=== PATIENT | female | born 1950 | race Two or more races ===

== ENCOUNTER 2021-10-09 12:02 | Inpatient (IN) | payer OTHER, MEDICAID ==
[~2021-10-09] VITALS: Ht 160 cm; Wt 140.6 kg
[2021-10-09] MEDS ORDERED: ACETAMINOPHEN 500 MG TAB PO ONE (12:30)
[2021-10-09] MEDS ORDERED: CLINDAMYCIN 600MG IV 50 ML IV ONE (12:30)
[2021-10-09 13:45] LABS: Basophils # (auto) 0 10 ^3/uL (0-0.2); Basophils % (auto) 0.2 % (0.0-2.0); Eosinophils # (auto) 0 10 ^3/uL (0-0.8); Hemoglobin 12.1 g/dL (12.2-16.2); Lymphocytes # (auto) 1.6 10 ^3/uL (0.4-5.4); Lymphocytes % (auto) 16.7 % (10.0-50.0); Mean Corpuscular Hemoglobin 25.7 pg (28.0-32.0); Mean Corpuscular Hgb Conc. 31.8 g/dL (32.0-36.0); Mean Corpuscular Volume 81.1 fL (80.0-100.0); Monocytes # (auto) 0.6 10 ^3/uL (0-1.3); Monocytes % (auto) 6.1 % (0.0-12.0); Neutrophils # (auto) 7.4 10 ^3/uL (1.6-8.6); Red Blood Cells 4.69 10^6/uL (4.0-5.20); Red Cell Distribution Width 15.4 % (11.8-14.3); White Blood Cell 9.6 10^3/uL (4.4-10.8)
[2021-10-09 13:52] LABS: Albumin 3.3 g/dL (3.4-5.0); Calcium 8.5 mg/dL (8.5-10.1); Potassium 3.1 mmol/L (3.5-5.1)
[2021-10-09 13:59] LABS: BUN/Creatinine Ratio 14.5; Bilirubin, Total 0.5 mg/dL (0.2-1.0); Total Protein 7.6 g/dL (6.4-8.2)
[2021-10-09] MEDS ORDERED: POTASSIUM CHL 20 Meq TABLET PO ONE (15:30)
[2021-10-09] MEDS ORDERED: NITROGLYCERIN 0.4 MG SL TAB SL PRN (16:00)
[2021-10-09] MEDS ORDERED: LORazepam 0.5 MG TAB PO PRN (16:00)
[2021-10-09] MEDS ORDERED: ALUM & MAG HYDROX-SIMETH LIQ(MAALOX) 30 ML PO PRN (16:00)
[2021-10-09] MEDS ORDERED: METOCLOPRAMIDE HCL 5MG/ml INJ 2ml VIAL IV PRN (16:00)
[2021-10-09] MEDS ORDERED: DOCUSATE SOD 100 MG CAP PO PRN (16:00)
[2021-10-09] MEDS ORDERED: MORPHINE SULFATE INJ 2 MG/ml SYRG IV PRN ×2 (16:00)
[2021-10-09] MEDS: SODIUM CHLORIDE 0.9% 1,000 ML IV SCH (16:00)
[2021-10-09] MEDS ORDERED: HYDROcodone-ACET 5/325MG TAB PO PRN (16:00)
[2021-10-09] MEDS: CLINDAMYCIN 300MG IV 50 ML IV SCH ×2 (16:00→22:17)
[2021-10-09] MEDS: ACETAMINOPHEN 325 MG TAB PO PRN (21:22)
[2021-10-09 23:19] VITALS: BP 102/50
[2021-10-10] MEDS: CLINDAMYCIN 300MG IV 50 ML IV SCH ×2 (04:59→09:42)
[2021-10-10] MEDS: ACETAMINOPHEN 325 MG TAB PO PRN ×2 (05:00→23:02)
[2021-10-10 05:12] VITALS: BP 132/74
[2021-10-10 06:48] LABS: Basophils # (auto) 0 10 ^3/uL (0-0.2); Basophils % (auto) 0.2 % (0.0-2.0); Eosinophils # (auto) 0 10 ^3/uL (0-0.8); Eosinophils % (auto) 0.1 % (0.0-7.0); Hematocrit 32.1 % (36.0-46.0); Hemoglobin 10.6 g/dL (12.2-16.2); Lymphocytes # (auto) 1.2 10 ^3/uL (0.4-5.4); Lymphocytes % (auto) 14.9 % (10.0-50.0); Mean Corpuscular Hemoglobin 26.5 pg (28.0-32.0); Mean Corpuscular Hgb Conc. 33.1 g/dL (32.0-36.0); Mean Corpuscular Volume 80.1 fL (80.0-100.0); Monocytes # (auto) 0.7 10 ^3/uL (0-1.3); Monocytes % (auto) 8.9 % (0.0-12.0); Neutrophils # (auto) 5.9 10 ^3/uL (1.6-8.6); Neutrophils % (auto) 75.9 % (37.0-80.0); Nucleated Red Blood Cells % 0.1 %; Potassium 3.6 mmol/L (3.5-5.1); Red Blood Cells 4.01 10^6/uL (4.0-5.20); White Blood Cell 7.8 10^3/uL (4.4-10.8)
[2021-10-10 06:56] LABS: Albumin 2.6 g/dL (3.4-5.0); BUN/Creatinine Ratio 16.3; Bilirubin, Total 0.4 mg/dL (0.2-1.0); Calcium 7.9 mg/dL (8.5-10.1); Total Protein 6.5 g/dL (6.4-8.2)
[2021-10-10] MEDS: SODIUM CHLORIDE 0.9% 1,000 ML IV SCH (08:40)
[2021-10-10] MEDS: AMPICILLIN & SULBACTAM SODIUM 3 GM in SODIUM CHL 0.9% 100 ML IV SCH ×2 (12:05→18:23)
[2021-10-10 13:00] VITALS: BP 111/53
[2021-10-10 14:47] LABS: Urine Bacteria NONE SEEN /hpf (None Seen); Urine Blood 1+ /uL (Negative); Urine Specific Gravity 1.009 (1.001-1.035); Urine WBC 2 /hpf (0 - 5)
[2021-10-10] MEDS: CLINDAMYCIN 600MG IV 50 ML IV SCH ×2 (15:04→23:03)
[2021-10-10 17:00] VITALS: BP 107/52
[2021-10-10 22:00] VITALS: BP 119/64
[2021-10-11] MEDS: SODIUM CHLORIDE 0.9% 1,000 ML IV SCH (01:41)
[2021-10-11] MEDS: AMPICILLIN & SULBACTAM SODIUM 3 GM in SODIUM CHL 0.9% 100 ML IV SCH ×3 (03:00→19:36)
[2021-10-11 05:35] VITALS: BP 128/75
[2021-10-11 06:31] LABS: Basophils # (auto) 0 10 ^3/uL (0-0.2); Eosinophils # (auto) 0 10 ^3/uL (0-0.8); Monocytes # (auto) 0.8 10 ^3/uL (0-1.3)
[2021-10-11 06:33] LABS: Basophils % (auto) 0.4 % (0.0-2.0); Eosinophils % (auto) 0.7 % (0.0-7.0); Hematocrit 32.8 % (36.0-46.0); Hemoglobin 10.7 g/dL (12.2-16.2); Lymphocytes # (auto) 1.4 10 ^3/uL (0.4-5.4); Lymphocytes % (auto) 22.7 % (10.0-50.0); Mean Corpuscular Hemoglobin 26.5 pg (28.0-32.0); Mean Corpuscular Hgb Conc. 32.5 g/dL (32.0-36.0); Mean Corpuscular Volume 81.5 fL (80.0-100.0); Neutrophils % (auto) 63.2 % (37.0-80.0); Nucleated Red Blood Cells % 0.1 %; Red Blood Cells 4.02 10^6/uL (4.0-5.20); Red Cell Distribution Width 15.1 % (11.8-14.3); White Blood Cell 6.3 10^3/uL (4.4-10.8)
[2021-10-11 06:52] LABS: Potassium 3.5 mmol/L (3.5-5.1)
[2021-10-11 06:58] LABS: Albumin 2.4 g/dL (3.4-5.0); BUN/Creatinine Ratio 10.8; Bilirubin, Total 0.4 mg/dL (0.2-1.0); Calcium 7.9 mg/dL (8.5-10.1); Total Protein 6.6 g/dL (6.4-8.2)
[2021-10-11] MEDS: CLINDAMYCIN 600MG IV 50 ML IV SCH ×2 (07:00→15:00)
[2021-10-11 09:23] VITALS: BP 108/57
[2021-10-11 12:38] VITALS: BP 120/70
[2021-10-11 16:40] VITALS: BP 124/68
[2021-10-11 23:39] VITALS: BP 135/79
[2021-10-12] MEDS: CLINDAMYCIN 600MG IV 50 ML IV SCH ×4 (00:26→22:44)
[2021-10-12] MEDS: AMPICILLIN & SULBACTAM SODIUM 3 GM in SODIUM CHL 0.9% 100 ML IV SCH ×4 (03:13→20:57)
[2021-10-12 05:18] VITALS: BP 132/72
[2021-10-12 09:00] VITALS: BP 146/83
[2021-10-12] MEDS: ACETAMINOPHEN 325 MG TAB PO PRN (11:58)
[2021-10-12 13:00] VITALS: BP 123/73
[2021-10-12] MEDS ORDERED: DEXTROSE (50%) 50ML SYRG IV PRN (13:00)
[2021-10-12 17:00] VITALS: BP 139/72
[2021-10-12] MEDS: ACCU-CHEK COMFORT CURVE STRIP VI SCH ×2 (17:00→22:40)
[2021-10-12] MEDS: InsuLIN REG 1unit/0.01ml Soln (100units/ml) SC SCH ×2 (17:00→22:00)
[2021-10-13] MEDS: AMPICILLIN & SULBACTAM SODIUM 3 GM in SODIUM CHL 0.9% 100 ML IV SCH ×4 (02:01→20:21)
[2021-10-13 05:22] VITALS: BP 126/73
[2021-10-13] MEDS: InsuLIN REG 1unit/0.01ml Soln (100units/ml) SC SCH ×4 (06:02→22:00)
[2021-10-13] MEDS: ACCU-CHEK COMFORT CURVE STRIP VI SCH ×4 (06:02→23:17)
[2021-10-13] MEDS: CLINDAMYCIN 600MG IV 50 ML IV SCH ×3 (06:10→23:17)
[2021-10-13 06:14] LABS: Hemoglobin 10.8 g/dL (12.2-16.2)
[2021-10-13 06:17] LABS: Hematocrit 32.7 % (36.0-46.0)
[2021-10-13 06:25] LABS: Magnesium 2.3 mg/dL (1.6-2.6)
[2021-10-13] MEDS: ACETAMINOPHEN 325 MG TAB PO PRN (08:39)
[2021-10-13 09:24] VITALS: BP 138/70
[2021-10-13 12:38] VITALS: BP 114/59
[2021-10-13 16:06] LABS: % Iron Saturation 11.5 % (15-50)
[2021-10-13 17:13] VITALS: BP 125/61
[2021-10-13 22:00] VITALS: BP 131/71
[2021-10-14] MEDS: AMPICILLIN & SULBACTAM SODIUM 3 GM in SODIUM CHL 0.9% 100 ML IV SCH ×4 (01:30→21:57)
[2021-10-14 05:00] VITALS: BP 140/74
[2021-10-14] MEDS: ACCU-CHEK COMFORT CURVE STRIP VI SCH ×4 (06:24→22:30)
[2021-10-14] MEDS: InsuLIN REG 1unit/0.01ml Soln (100units/ml) SC SCH ×4 (06:24→22:30)
[2021-10-14] MEDS: CLINDAMYCIN 600MG IV 50 ML IV SCH ×2 (06:25→15:00)
[2021-10-14 06:59] LABS: Basophils # (auto) 0 10 ^3/uL (0-0.2); Eosinophils # (auto) 0.2 10 ^3/uL (0-0.8); Lymphocytes # (auto) 1.9 10 ^3/uL (0.4-5.4); Monocytes # (auto) 0.4 10 ^3/uL (0-1.3); Monocytes % (auto) 8.7 % (0.0-12.0); White Blood Cell 4.8 10^3/uL (4.4-10.8)
[2021-10-14 07:02] LABS: Eosinophils % (auto) 4.9 % (0.0-7.0); Hematocrit 33.9 % (36.0-46.0); Lymphocytes % (auto) 39.7 % (10.0-50.0); Mean Corpuscular Hemoglobin 25.9 pg (28.0-32.0); Mean Corpuscular Hgb Conc. 32.3 g/dL (32.0-36.0); Mean Corpuscular Volume 80.1 fL (80.0-100.0); Neutrophils # (auto) 2.2 10 ^3/uL (1.6-8.6); Neutrophils % (auto) 45.7 % (37.0-80.0); Nucleated Red Blood Cells % 0.2 %; Red Blood Cells 4.24 10^6/uL (4.0-5.20); Red Cell Distribution Width 15.4 % (11.8-14.3)
[2021-10-14 07:16] LABS: Potassium 3.8 mmol/L (3.5-5.1)
[2021-10-14 07:25] LABS: Albumin 2.6 g/dL (3.4-5.0); BUN/Creatinine Ratio 11.9; Calcium 8.2 mg/dL (8.5-10.1); Phosphorus 3.2 mg/dL (2.5-4.90)
[2021-10-14 09:00] VITALS: BP 122/75
[2021-10-14 13:00] VITALS: BP 109/72
[2021-10-14 16:48] VITALS: BP 132/76
[2021-10-14 22:00] VITALS: BP 129/71
[2021-10-15] MEDS: CLINDAMYCIN 600MG IV 50 ML IV SCH ×2 (00:36→06:15)
[2021-10-15] MEDS: AMPICILLIN & SULBACTAM SODIUM 3 GM in SODIUM CHL 0.9% 100 ML IV SCH ×3 (02:20→13:00)
[2021-10-15 05:25] VITALS: BP 112/78
[2021-10-15] MEDS: ACCU-CHEK COMFORT CURVE STRIP VI SCH ×2 (06:15→11:30)
[2021-10-15] MEDS: InsuLIN REG 1unit/0.01ml Soln (100units/ml) SC SCH ×2 (06:16→11:30)
[2021-10-15 07:18] LABS: Hematocrit 33.4 % (36.0-46.0); Hemoglobin 10.8 g/dL (12.2-16.2)
[2021-10-15 09:00] VITALS: BP 112/70
[2021-10-15] MEDS ORDERED: SACC250C PO (12:18)
[2021-10-15] MEDS ORDERED: LEVO500T31 PO (12:18)
[2021-10-15] MEDS ORDERED: CLIN300C8 PO (12:18)
[2021-10-15 14:10] VITALS: BP 140/74
== END 2021-10-15 15:30 | disposition home or self-care (01) | DRG 872 ==
LOC: ER 12:02 → OVERFLOW 15:57 → CENTRAL 19:55
PROVIDERS: ADMIT Family Medicine; ATTEND Internal Medicine
DX: A41.9 Sepsis, unspecified organism (principal); L03.116 Cellulitis of left lower limb; E46 Unspecified protein-calorie malnutrition; E87.6 Hypokalemia; E78.5 Hyperlipidemia, unspecified; E11.9 Type 2 diabetes mellitus without complications; D64.9 Anemia, unspecified; Z20.822 Contact with and (suspected) exposure to COVID-19; Z68.23 Body mass index [BMI] 23.0-23.9, adult
CPT/HCPCS: 36415; 80053; 80061; 80069; 81001; 82962; 83036; 83540; 83550; 83605; 83735; 84132; 85014; 85018; 85025; 85652; 87040; 93971; 96365; 96366; G0378; J3490

== ENCOUNTER 2024-09-01 15:24 | Emergency (ER) | payer OTHER, MEDICAID ==
[~2024-09-01] VITALS: Ht 154.9 cm; Wt 69.2 kg
[~2024-09-01 15:24] MED LIST: CLIN1CAP70 PO; LEVO500T31 PO; SACC250C PO
--- NOTE | 2024-09-01 16:28 | ED.PDOC ---
HPI (NEURO) HPI Comments 74 Year-Old Female brought in by daughter to the ED for the c/c of feeling Unbalanced. Per daughter, pt was at [place] with family at 2:30pm, when she had an onset of feeling unbalanced and sweating. Pt states that she feels as if she cannot stand. Daughter notes of a prior that happened years ago. However triage notes suggested has been having unbalanced gait/dizziness for at least five days. PMHx: Hyperlipidemia SHx: Vitals: TEMP:98.4 Pulse: 85 RR: 14 BP: 129/66 HPI: Poor Historian. REVIEW OF SYSTEMS: CONSTITUTIONAL: Denies acute: fever, diaphoresis, chills, HEAD: Denies acute: headache, photophobia Eyes: Denies acute: Double vision, vision loss, eye pain, eye discharge. EARS: Denies acute: tinnitus, hearing loss, ear discharge, ear pain, THROAT: Denies acute: sore throat, swelling, difficulty swallowing , pain with swallowing, change in voice. NECK: Denies acute: neck pain, neck swelling, stiff neck. HEART: Denies acute : chest pain, palpitations, LUNGS: Denies acute: SOB, wheezing, cough, hemoptysis ABDOMEN: Denies acute: abdominal pain, Nausea, Vomiting, diarrhea, melena , hematemesis, hematochezia SKIN: Denies acute: rash, redness, lesions, itchiness. EXTREMITIES: Denies acute: calf pain, numbness, tingling, weakness, denies pain in extremity. Denies acute: Low back pain. Neuro: Denies acute: focal neurological deficit, motor or sensory focal neurological deficit, tremors, seizure like activity, confusion, change in mental status, loss of bowel or bladder function, cauda equina like symptoms. : Denies acute: dysuria, hematuria, flank pain, increase in urinary frequency. PSYCH: Denies acute: hallucination, suicidal ideation, homicidal ideation. FEMALE: Denies acute: abnormal vaginal bleeding, foul odor, unusual discharge. PHYSICAL EXAM: General: ---no-----acute distress, awake and alert. Head: normocephalic, atraumatic. Neck: supple, trachea is midline, no swelling. Throat: Normal phonation. Eyes:, no erythema, no purulent discharge, no proptosis, no icterus. Heart: regular rate, regular rhythm, no significant murmur appreciated. Lungs: no apparent respiratory distress, Able to speak in full sentences. No wheezing, no rhonchi, no crackles. No stridors Clear to auscultation bilaterally. Abdomen: non tender to palpation, non distended, soft, no guarding, no rebound, + bowel sounds. Neuro: Awake, Alert, oriented to name, self, situation, follows commands GCS=15. Speech is normal. Skin: no petechia, no purpura, no cyanosis, non-pale, not jaundice. Lower extremities: --no - Pitting edema no deformity, no focal swelling, no calf TTP. Makes eye contact. moves all four extremities. Face: no apparent facial droop. Ambulating in the ED but seems somewhat unsteady. Stroke: finger to nose cerebellar testing is intact. No pronator drift. Symmetrical vitreo retinal surgeon muscle strength b/l PERRLA, EOM-I CN 2-12 are grossly intact, No nystagmus. No nuchal rigidity, Kernig's sign, Brudzinski's sign, no meningeal signs. 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 Was a procedure done?: No Differential Diagnosis (SZ) Seizure: N/A CVA: Mass Lesion, SAH, TIA General Weakness: Anemia, CVA, Dehydration, Dysrhythmia, Electrolyte imbalance, Encephalopathy, Guillain-[place], Hypoglycemia, Hypotension, Hypovolemia, Labyrinthitis, Meniere's disease, Myasthenia gravis, Myocardial infarction, Pulmonary embolus, Renal failure, Repiratory failure, TIA, VBI, Vertigo: central, Vertigo: peripheral, Vestibular neuronitis X-Ray, Labs, Meds, VS Vital Signs Date Time Temp Pulse Resp B/P (MAP) Pulse Ox O2 Delivery O2 Flow Rate FiO2 09/01/24 21:55 98.2 70 13 123/69 (87) 96 98.2 09/01/24 19:55 80 13 96 Room Air* 0 N/A Nasal Cannula* 09/01/24 19:50 98.8 80 13 122/73 (89) 96 98.8 09/01/24 18:00 97.8 75 14 110/71 (84) 97 97.8 09/01/24 18:00 73 13 98 Room Air* 0 21 09/01/24 16:03 98.4 85 14 129/66 (87) 97 98.4 Lab Test 09/01/24 17:51 09/01/24 17:01 09/01/24 15:46 Range/Units Troponin I High Sensitivity 5 5 </=34 ng/L White Blood Count 8.4 4.4-10.8 10^3/uL Red Blood Count 4.49 4.0-5.20 10^6/uL Hemoglobin 12.5 12.2-16.2 g/dL Hematocrit 37.2 36.0-46.0 % Mean Corpuscular Volume 82.8 80.0-100.0 fL Mean Corpuscular Hemoglobin 27.7 L 28.0-32.0 pg Mean Corpuscular Hemoglobin Concent 33.5 32.0-36.0 g/dL Red Cell Distribution Width 14.2 11.8-14.3 % Platelet Count 225 140-450 10^3/uL Mean Platelet Volume 8.5 6.9-10.8 fL Neutrophils (%) (Auto) 71.9 37.0-80.0 % Lymphocytes (%) (Auto) 19.4 10.0-50.0 % Monocytes (%) (Auto) 6.8 0.0-12.0 % Eosinophils (%) (Auto) 1.1 0.0-7.0 % Basophils (%) (Auto) 0.8 0.0-2.0 % Neutrophils # (Auto) 6.1 1.6-8.6 10 ^3/uL Lymphocytes # (Auto) 1.6 0.4-5.4 10 ^3/uL Monocytes # (Auto) 0.6 0-1.3 10 ^3/uL Eosinophils # (Auto) 0.1 0-0.8 10 ^3/uL Basophils # (Auto) 0.1 0-0.2 10 ^3/uL Nucleated Red Blood Cells 0.0 % Sodium Level 139 136-145 mmol/L Potassium Level 3.6 3.5-5.1 mmol/L Chloride Level 102 98-107 mmol/L Carbon Dioxide Level 27 20-31 mmol/L Anion Gap 10 5-15 Blood Urea Nitrogen 19 9-23 mg/dL Creatinine 1.07 H 0.550-1.02 mg/dL Glomerular Filtration Rate Calc 55 >90 mL/min BUN/Creatinine Ratio 17.8 10.0-20.0 Serum Glucose 118 H 74-106 mg/dL Lactic Acid Level 1.7 0.4-2.0 mmol/L Calcium Level 10.0 8.7-10.4 mg/dL Magnesium Level 2.0 1.6-2.6 mg/dL Total Bilirubin 0.4 0.2-1.0 mg/dL Aspartate Amino Transferase (AST) 12 L 13-40 U/L Alanine Aminotransferase (ALT) 12 7-40 U/L Alkaline Phosphatase 91 46-116 U/L Total Protein 6.9 5.7-8.2 g/dL Albumin 4.4 3.2-4.8 g/dL POC Glucose 125 H 70-106 mg/dl PATIENT: KHARI JINCT: [id number]: [id number] : 1950 LOC: ER ROOM / BED: / AGE / SEX: 74 / F ADM STATUS: REG ER SERVICE 1621 ORDERING PHYSICIAN: FABIENNE SKAGGS DO PROCEDURE(s): HWOCT - HEAD WITHOUT CONTRAST REASON: dizzy ORDER NUMBER(s): [id number], ACCESSION NUMBER(s): [id number] EXAM: CT HEAD WITHOUT CONTRAST HISTORY: dizzy COMPARISON: None TECHNIQUE: Axial images were obtained and reformatted in coronal and sagittal planes. All CT scans at this medical facility are performed using dose modulation techniques as appropriate to a performed exam including the following: Automated exposure control was utilized; adjustment of the MA and/or KV according to patient size; and use of iterative reconstruction technique. CT Dose: CTDI volume is 51.26 mGy. Dose-length product is 907.79 mGy*cm FINDINGS: Supratentorial Region: Large, approximately 3 x 2.5 cm right frontotemporal mass with several subcentimeter central densities that may represent hemorrhage or calcifications . Extensive surrounding vasogenic edema noted width resultant effacement of the sulci, effacement of the body and occipital horn of the right lateral ventricle and 1 cm [id number] midline shift. Posterior Fossa: No acute abnormality. Brainstem: Unremarkable. Sellar/Suprasellar Region: Unremarkable. Ventricles, Cisterns, Sulci: Age-appropriate. Orbits: Unremarkable. Paranasal Sinuses: Unremarkable. Mastoid Air Cells: Unremarkable. Vasculature: Unremarkable. Bones/Soft Tissues: No acute abnormality. Other: None. IMPRESSION: 1. Large, approximately 3 x 2.5 cm right frontotemporal mass with subcentimeter foci of intrauterine lesionall hemorrhage or calcification exerting extensive surrounding vasogenic edema with resultant effacement of the sulci, effacement o f the body and occipital horn of the right lateral ventricle and 1 cm [id number] midline shift subfalcine herniation. Recommend neurosurgical consultation further evaluation with brain MRI without and with IV contrast. Findings discussed with FABIENNE SKAGGS at 09/01/2024 05:16 PM, and acknowledged receipt and understanding of the findings. .. DICTATED BY: PRISCILA SAHA MD DICTATED DATE/TIME: 09/01/241719 SIGNED BY: PRISCILA SAHA MD SIGNED DATE/TIME: 09/01/241719 PATIENT: NAYAN JIN ACCT: [id number] UNIT: [id number] : 1950 LOC: ER ROOM / BED: / AGE / SEX: 74 / F ADM STATUS: REG ER SERVICE 1621 ORDERING PHYSICIAN: FABIENNE SKAGGS DO PROCEDURE(s): CXRP - CHEST PORTABLE REASON: dizzy ORDER NUMBER(s): [id number], ACCESSION NUMBER(s): [id number] INDICATION: dizzy TECHNIQUE: Frontal view of the chest. COMPARISON: None FINDINGS: Findings:. The heart and mediastinal contours are grossly unremarkable. There is no evidence of pleural disease. The lungs are clear. The bony structures of the chest are intact without fracture. IMPRESSION: 1. No evidence of acute disease. ATED BY: JOSEPH ZIEGLER MD DICTATED DATE/TIME: 09/01/241648 SIGNED BY: JOSEPH ZIEGLER MD SIGNED DATE/TIME: 09/01/241648 Time of 1ST Reevaluation: 16:52 Reevaluation 1ST: Unchanged Time of 2ND Reevaluation: 18:17 (The case was discussed with the admitting team/neurosurgeon at [facility] (HPI, physical exam, labs and diagnostic tests that were available at the time of disposition, ED course, treatment plan) on the phone. They agreed to accept the patient as direct admit to their facility for further evaluation and treatment for higher level of care. They agree with our management. No further recommendations. Dr. Olson. ) Patient Education/Counseling: Diagnosis, Treatment Family Education/Counseling: Diagnosis, Treatment Comments Patient presented with the above HPI.--dizziness/unsteady gait----workup was initiated. patient was found with the above mentioned diagnosis. the following medications were ordered: please refer to order lists of meds and tests obtained by myself Dr. Skaggs. Patient ED course and VS have been stabilized. Patient has been reassessed in the ED and remained in a stable condition. Pertinent incidental findings were discussed with the patient and/or family. Patient/family voices understanding and is agreeable with plan. Patient has been observed in the ED adequate length of time to insure improvement/stability. Escalation of care considered: Consideration of escalation to observation or admission Case was discussed with higher level of care Neurosurgery at [facility]. Patient was transferred to neurosurgery team at [facility] for further evaluation and treatment of their presentation. Blood pressure remained stable throughout. All the reports of any imaging studies that were ordered by myself were reviewed by myself. Departure 1 Departure Time of Disposition: 17:13 Impression: Primary Impression: Intracranial mass Additional Impressions: Vasogenic brain edema Midline shift of brain Intracranial hemorrhage Disposition: ADMITTED INPATIENT Admit to: [facility] Condition: Guarded Discharged With: Self Critical Care Note Critical Care Time?: Yes (1 hr-critical care time only) I personally scribed for FABIENNE SKAGGS DO ([email or web address]) on 09/01/24 at 16:28. Electronically submitted by Naman Marvin ([email or web address]). I personally scribed for FABIENNE SKAGGS DO ([email or web address]) on 09/01/24 at 20:52. Electronically submitted by Felipe Schilling ([email or web address]). FABIENNE SKAGGS DO September 01, 2024 16:28
--- NOTE | 2024-09-01 16:51 | DVH ---
INDICATION: dizzy TECHNIQUE: Frontal view of the chest. COMPARISON: None FINDINGS: Findings:. The heart and mediastinal contours are grossly unremarkable. There is no evidence of pleu ral disease. The lungs are clear. The bony structures of the chest are intact without fracture. IMPRESSION: 1. No evidence of acute disease.
--- NOTE | 2024-09-01 17:23 | DVH ---
EXAM: CT HEAD WITHOUT CONTRAST HISTORY: dizzy COMPARISON: None TECHNIQUE: Axial images were obtained and reformatted in coronal and sagittal planes. All CT scans at this medical facility are performed using dose modulation techniques as appropriate t o a performed exam including the following: Automated exposure control was utilized; adjustment of th e MA and/or KV according to patient size; and use of iterative reconstruction technique. CT Dose: CTDI volume is 51.26 mGy. Dose-length product is 907.79 mGy*cm FINDINGS: Supratentorial Region: Large, approximately 3 x 2.5 cm right frontotemporal mass with several subcen timeter central densities that may represent hemorrhage or calcifications . Extensive surrounding vas ogenic edema noted width resultant effacement of the sulci, effacement of the body and occipital horn of the right lateral ventricle and 1 cm [id number] midline shift. Posterior Fossa: No acute abnormality. Brainstem: Unremarkable. Sellar/Suprasellar Region: Unremarkable. Ventricles, Cisterns, Sulci: Age-appropriate. Orbits: Unremarkable. Paranasal Sinuses: Unremarkable. Mastoid Air Cells: Unremarkable. Vasculature: Unremarkable. Bones/Soft Tissues: No acute abnormality. Other: None. IMPRESSION: 1. Large, approximately 3 x 2.5 cm right frontotemporal mass with subcentimeter foci of intrauterine lesionall hemorrhage or calcification exerting extensive surrounding vasogenic edema with resultant e ffacement of the sulci, effacement of the body and occipital horn of the right lateral ventricle and 1 cm [id number] midline shift subfalcine herniation. Recommend neurosurgical consultation further evaluation with brain MRI without and with IV contrast. Findings discussed with FABIENNE SKAGGS at 09/01/2024 05:16 PM, and acknowledged receipt and understandin g of the findings. ..
[2024-09-01 17:27] LABS: Basophils # (auto) 0.1 10 ^3/uL (0-0.2); Basophils % (auto) 0.8 % (0.0-2.0); Eosinophils # (auto) 0.1 10 ^3/uL (0-0.8); Eosinophils % (auto) 1.1 % (0.0-7.0); Hematocrit 37.2 % (36.0-46.0); Hemoglobin 12.5 g/dL (12.2-16.2); Lymphocytes # (auto) 1.6 10 ^3/uL (0.4-5.4); Lymphocytes % (auto) 19.4 % (10.0-50.0); Mean Corpuscular Hemoglobin 27.7 pg (28.0-32.0); Mean Corpuscular Hgb Conc. 33.5 g/dL (32.0-36.0); Mean Corpuscular Volume 82.8 fL (80.0-100.0); Monocytes # (auto) 0.6 10 ^3/uL (0-1.3); Monocytes % (auto) 6.8 % (0.0-12.0); Neutrophils # (auto) 6.1 10 ^3/uL (1.6-8.6); Neutrophils % (auto) 71.9 % (37.0-80.0); Platelet Count (auto) 225 10^3/uL (140-450); Red Blood Cells 4.49 10^6/uL (4.0-5.20); Red Cell Distribution Width 14.2 % (11.8-14.3); White Blood Cell 8.4 10^3/uL (4.4-10.8)
[2024-09-01 17:41] LABS: Alanine Aminotransferase 12 U/L (7-40); Albumin 4.4 g/dL (3.2-4.8); Alkaline Phosphatase 91 U/L (46-116); Anion Gap 10 (5-15); BUN/Creatinine Ratio 17.8 (10.0-20.0); Blood Urea Nitrogen 19 mg/dL (9-23); Carbon Dioxide 27 mmol/L (20-31); Chloride 102 mmol/L (98-107); Potassium 3.6 mmol/L (3.5-5.1); Sodium 139 mmol/L (136-145); Total Protein 6.9 g/dL (5.7-8.2)
[2024-09-01 17:42] LABS: Aspartate Aminotransferase 12 U/L (13-40); Bilirubin, Total 0.4 mg/dL (0.2-1.0); Glucose 118 mg/dL (74-106)
[2024-09-01 18:00] VITALS: PULSE 73; RESP 13; O2SAT 98
[2024-09-01] MEDS: levETIRAcetam 500 mg/100ml 100 ML IV ONE (18:48)
[2024-09-01] MEDS: DexAMETHasone SOD PHOS 10MG/1ML VIAL INJ IV ONE (18:48)
[2024-09-01 19:55] VITALS: PULSE 80; RESP 13; O2SAT 96
[2024-09-01 21:55] VITALS: BP 123/69; PULSE 70; RESP 13; TEMP 98.2; O2SAT 96
--- NOTE | 2024-09-02 06:54 | ECG ---
[facility] Test Date: 2024-09-01 Test Time: 15:48:54 Pat Name: NAYAN JIN Department: ER Room: Gender: [employer]: AM : 1950 Requested By: NATHALIE ECHOLS Order Number: [id number] Reading MD: Yonathan Peters Measurements Intervals [place] Rate: 84 P: 32 [place]: 150 QRS: 0 QRSD: 81 T: 52 QT: 369 QTc: 437 Interpretive Statements Sinus rhythm Low voltage, precordial leads Electronically Signed On 09-06-2024 11:41:55 PDT by Yonathan Peters Please click the below link to view image of tracing.
== END 2024-09-01 22:06 | disposition short-term general hospital (02) ==
LOC: ER 15:26
DX: I62.9 Nontraumatic intracranial hemorrhage, unspecified (principal); G93.6 Cerebral edema; Z79.899 Other long term (current) drug therapy
CPT/HCPCS: 36415; 70450; 71045; 80053; 82947; 83605; 83735; 84484; 85025; 93005; 96374; 96375; 99285; J1100; J1953; 82962